=== PATIENT | female | born 1950 | race Two or more races ===

== ENCOUNTER 2025-03-28 13:25 | Outpatient (CLI) | payer OTHER ==
--- NOTE | 2025-03-28 15:21 | DVHSR ---
APPROVED REPORT EXAM: Two-dimensional and M-mode echocardiogram with Doppler and color Doppler. INDICATION Paresthesia of Skin RISK FACTORS Height: 62, Weight: 107 DIMENSIONS LVDd (3.8-5.7cm) LA (2D) 2.6 (1.9-4.0cm) Aortic Root 3.3 (2.0-3.7cm) LVDs (2.5-4.0cm) LA (MM) (1.9-4.0cm) Aortic Cusp Exc 0.5 (1.5-2.0cm) EF (%) 69.0 (55-70%) Rt. Atrium 3.1 (1.9-4.0cm) Asc. Aorta cm Mitral Valve Mitral Mitral Stenosis E wave 0.61m/s MV Mean GR. mmHg A wave 0.75m/s MV Peak GR. mmHg E/A ratio 0.8 2D MVA cm2 DECEL Time 256ms PRESS 1/2 Time ms Aortic Valve Aortic Valve Aortic Stenosis V1 1.59m/s AO Mean GR. 4mmHg V2 1.49m/s AO Peak GR. 9mmHg LVOT Diameter 1.7 (1.8-2.4cm) Doppler TIFFANI 2.42cm2 AI P 1/2 Time 503.77ms Pulmonic Valve V2 0.95m/s Tricuspid Valve TR Velocity 2.34m/s RVSP 25mmHg Other Information Technically limited study due to body habitus. Conclusion Technically good study. Sinus rhythm. There is mild aortic root enlargement. Mild aortic sclerosis. Mild thickening of the leaflets. Left ventricular function is preserved at 65% with normal RV function. There is [id number] aortic insufficiency. Mild tricuspid regurgitation. No pericardial effusion masses or vegetations.
== END 2025-03-31 17:00 | disposition home or self-care (01) ==
LOC: XYW 13:25
PROVIDERS: ATTEND Internal Medicine
DX: I08.3 Combined rheumatic disorders of mitral, aortic and tricuspid valves (principal); I51.7 Cardiomegaly; R20.2 Paresthesia of skin
CPT/HCPCS: 93306